=== PATIENT | male | born 1975 | race Caucasian/White ===

== ENCOUNTER 2022-01-13 10:34 | Emergency (ER) | payer OTHER ==
[~2022-01-13] VITALS: Ht 182.9 cm; Wt 95.3 kg
[2022-01-13] MEDS ORDERED: ACETAMINOPHEN 325 MG TABLET PO ONE (11:00)
--- NOTE | 2022-01-13 11:04 | NUR ---
PT IS IN ROOM #2B. DR COBOS EVALUATED THE PT.
[2022-01-13] MEDS ORDERED: ACETAMINOPHEN 325 MG TABLET ONE (11:07)
[2022-01-13] MEDS ORDERED: IBUP-1955 PO (11:35)
--- NOTE | 2022-01-13 12:48 | NUR ---
PT WAS D/C'D TO HOME. D/C INSTRUCTIONS GIVEN TO THE PT BY DR COBOS.
[2022-01-13 12:49] VITALS: BP 149/91
== END 2022-01-13 13:42 | disposition home or self-care (01) ==
LOC: ER 10:36
DX: S90.31XA Contusion of right foot, initial encounter (principal); W18.43XA Slipping, tripping and stumbling without falling due to stepping from one level to another, initial encounter; Y92.89 Other specified places as the place of occurrence of the external cause
CPT/HCPCS: 73610; 73630; A4663